=== PATIENT | female | born 1930 | race Two or more races ===

== ENCOUNTER 2017-05-08 10:44 | Emergency (ER) | payer OTHER ==
[~2017-05-08] VITALS: Ht 162.6 cm; Wt 61.2 kg
[2017-05-08 11:57] LABS: CARBON DIOXIDE 28 mmol/L (21-32); CHLORIDE 103 mmol/L (98-107); CREATININE 0.7 mg/dL (0.6-1.3); GLUCOSE 140 mg/dL (74-106); UREA NITROGEN, BLOOD 11 mg/dL (7-18)
[2017-05-08 12:06] LABS: BASOPHILS % (AUTO) 0.6 % (0.0-2.0); EOSINOPHILS # (AUTO) 0.1 K/uL (0.0-0.7); EOSINOPHILS % (AUTO) 1.9 % (0.0-7.0); HEMATOCRIT 36.1 % (31.2-41.9); HEMOGLOBIN 11.8 g/dL (10.9-14.3); LYMPHOCYTES % (AUTO) 28.7 % (20.5-51.5); MEAN CORPUSCULAR HEMOGLOBIN 28.2 uug (24.7-32.8); MEAN CORPUSCULAR HGB CONC 33 g/dL (32.3-35.6); MEAN CORPUSCULAR VOLUME 86.2 fL (75.5-95.3); MONOCYTES # (AUTO) 0.4 K/uL (2.0-10.0); MONOCYTES % (AUTO) 11.8 % (0.0-11.0); PLATELET COUNT (AUTO) 78 K/uL (179-408); RED BLOOD CELL COUNT(AUTO) 4.19 MIL/uL (3.63-4.92); WHITE BLOOD COUNT (AUTO) 3.6 K/uL (3.8-11.8)
[2017-05-08 12:09] LABS: ALANINE AMINOTRANSFERASE 31 U/L (14-59); ALKALINE PHOSPHATASE 168 U/L (50-136); ASPARTATE AMINOTRANSFERASE 48 U/L (15-37); BILIRUBIN,DIRECT 0.4 mg/dL (0.0-0.2); TOTAL PROTEIN, SERUM 7.3 g/dL (6.4-8.2)
[2017-05-08 12:28] LABS: EOSINOPHILS % (MANUAL) 3 % (0-8); LYMPHOCYTES % (MANUAL) 29 % (20-40); MONOCYTES % (MANUAL) 10 % (2-10); NEUTROPHILS % (MANUAL) 57 % (42-75)
--- NOTE | 2017-05-08 12:53 | NUR ---
Patient discharged to home in stable conditon. Written and verbal after care instructions given. Patient verbalizes understanding of instructions.
[2017-05-08 12:57] LABS: REACTIVE LYMPHOCYTES 1 % (0-0)
[2017-05-08 13:13] LABS: *BILIRUBIN,URIN NEGATIVE (NEGATIVE); *BLOOD, URINE NEGATIVE (NEGATIVE); *CLARITY,URINE CLEAR (CLEAR); *COLOR,URINE YELLOW (YELLOW); *KETONES,URINE NEGATIVE (NEGATIVE); *PROTEIN,URINE NEGATIVE (NEGATIVE); *UROBILINOGEN,URINE 0.2 E.U./dl (NORMAL); LEUKOCYTE ESTERASE ,URINE NEGATIVE (NEGATIVE); NITRITE, URINE NEGATIVE (NEGATIVE); PH,URINE 7.5 (5.0-8.0); UGLUCOSE NEGATIVE (NEGATIVE)
[2017-05-08 13:23] LABS: RBC,URINE 0-3 /HPF (0-3); WBC,URINE 0-3 /HPF (0-3)
[2017-05-08 13:24] LABS: BACTERIA,URINE FEW /HPF (NONE SEEN); SQUAMOUS EPITHELIAL CELL,UR FEW /HPF (NONE SEEN)
== END 2017-05-08 12:57 | disposition home or self-care (01) ==
LOC: ER 10:44
DX: J20.8 Acute bronchitis due to other specified organisms (principal); B96.89 Other specified bacterial agents as the cause of diseases classified elsewhere; D69.6 Thrombocytopenia, unspecified; I10 Essential (primary) hypertension; M19.90 Unspecified osteoarthritis, unspecified site; Z95.0 Presence of cardiac pacemaker
CPT/HCPCS: 36415; 71045; 80048; 80076; 81001; 83605; 83880; 84484; 85025; 85730; 87040 ×2; 87086; 93005; 99285; A4663; 70030-TC

== ENCOUNTER 2017-09-10 19:10 | Inpatient (IN) | payer OTHER ==
[~2017-09-10] VITALS: Ht 154.9 cm; Wt 61.0 kg
--- NOTE | 2017-09-10 20:00 | NUR ---
Dr. Hampton at bedside for MSE.
[2017-09-10 20:30] LABS: *BILIRUBIN,URIN NEGATIVE (NEGATIVE); *BLOOD, URINE NEGATIVE (NEGATIVE); *COLOR,URINE YELLOW (YELLOW); *KETONES,URINE NEGATIVE (NEGATIVE); *PROTEIN,URINE NEGATIVE (NEGATIVE); *UROBILINOGEN,URINE 0.2 E.U./dl (NORMAL); LEUKOCYTE ESTERASE ,URINE NEGATIVE (NEGATIVE); NITRITE, URINE NEGATIVE (NEGATIVE); PH,URINE 7.5 (5.0-8.0); UGLUCOSE NEGATIVE (NEGATIVE)
[2017-09-10 20:36] LABS: *CLARITY,URINE SLIGHTLY HAZY (CLEAR)
[2017-09-10 20:37] LABS: BACTERIA,URINE FEW /HPF (NONE SEEN); RBC,URINE 0-3 /HPF (0-3); SQUAMOUS EPITHELIAL CELL,UR MODERATE /HPF (NONE SEEN)
[2017-09-10 20:43] LABS: BASOPHILS % (AUTO) 0.7 % (0.0-2.0); EOSINOPHILS # (AUTO) 0.1 K/uL (0.0-0.7); EOSINOPHILS % (AUTO) 1.6 % (0.0-7.0); HEMATOCRIT 36.4 % (31.2-41.9); LYMPHOCYTES # (AUTO) 1.1 K/uL (20.0-40.0); LYMPHOCYTES % (AUTO) 20.5 % (20.5-51.5); MEAN CORPUSCULAR HEMOGLOBIN 28.1 uug (24.7-32.8); MEAN CORPUSCULAR HGB CONC 33 g/dL (32.3-35.6); MEAN CORPUSCULAR VOLUME 84.9 fL (75.5-95.3); MONOCYTES # (AUTO) 0.5 K/uL (2.0-10.0); MONOCYTES % (AUTO) 9.7 % (0.0-11.0); NEUTROPHILS # (AUTO) 3.7 K/uL (1.8-8.9); NEUTROPHILS % (AUTO) 67.5 % (38.5-71.5); PLATELET COUNT (AUTO) 97 K/uL (179-408); RED BLOOD CELL COUNT(AUTO) 4.28 MIL/uL (3.63-4.92); WHITE BLOOD COUNT (AUTO) 5.5 K/uL (3.8-11.8)
--- NOTE | 2017-09-10 20:46 | NUR ---
PATIENT SHIELDED KAZAKH SPEAKING PATIENT HX CHEST PAIN PORTABLE: 110@3.2 EXAM END: 2039
[2017-09-10 20:47] LABS: CARBON DIOXIDE 26 mmol/L (21-32); CHLORIDE 104 mmol/L (98-107); CREATININE 0.6 mg/dL (0.6-1.3); GLUCOSE 112 mg/dL (74-106); POTASSIUM 4.1 mmol/L (3.5-5.1); UREA NITROGEN, BLOOD 11 mg/dL (7-18)
[2017-09-10 20:54] LABS: ALANINE AMINOTRANSFERASE 41 U/L (14-59); ALKALINE PHOSPHATASE 238 U/L (50-136); ASPARTATE AMINOTRANSFERASE 57 U/L (15-37); BILIRUBIN,TOTAL 0.8 mg/dL (0.2-1.0); CREATINE KINASE, TOTAL 96 U/L (26-192); LIPASE 268 U/L (73-393); TOTAL PROTEIN, SERUM 7.7 g/dL (6.4-8.2)
[2017-09-10 21:13] LABS: BAND % (MANUAL) 3 % (0-10); EOSINOPHILS % (MANUAL) 2 % (0-8); LYMPHOCYTES % (MANUAL) 21 % (20-40); MONOCYTES % (MANUAL) 10 % (2-10); NEUTROPHILS % (MANUAL) 64 % (42-75)
--- NOTE | 2017-09-10 21:29 | NUR ---
Assisted pt to bathroom.
[2017-09-10] MEDS ORDERED: CEFTRIAXONE 1 G in IV DEXTROSE 5% 50 ML IV ONE (21:48)
[2017-09-10] MEDS ORDERED: CEFTRIAXONE 1 G VIAL ONE (21:54)
[2017-09-10] MEDS ORDERED: FLUT10.62 INH (22:09)
[2017-09-10] MEDS ORDERED: SPIR25TA4 PO (22:09)
[2017-09-10] MEDS ORDERED: RANI150T8 PO (22:09)
[2017-09-10] MEDS ORDERED: FURO20TA4 PO (22:09)
[2017-09-10] MEDS ORDERED: OMEP20CA10 PO (22:09)
--- NOTE | 2017-09-10 22:30 | NUR ---
Dr. Hampton on panel call with Dr. Davila.
[2017-09-10] MEDS ORDERED: ALBUTEROL SULFATE 2.5 MG/ 0.5 ML NEBU NEB PRN (22:45)
[2017-09-10] MEDS ORDERED: DEXAMETHASONE SOD PHOSPHATE 4 MG INJ IV ONE (22:45)
[2017-09-10] MEDS ORDERED: IPRATROPIUM BROMIDE 0.5 MG/2.5 ML NEBU NEB PRN (22:45)
--- NOTE | 2017-09-10 22:47 | NUR ---
Passed report to Bairon RUTH tele.
[2017-09-11] VITALS: BP 122/65
--- NOTE | 2017-09-11 00:12 | NUR ---
RECEIVED ADMIN REPORT FROM FLORY HOLDEN IN ER. PT ARRIVED ON TELE FLOOR VIA W/C. PEARL HAND ON, PT STABLE AT THIS TIME. V/S WNL. ORIENTATED TO ROOM AND FLOOR. CALL LIGHT WITHIN REACH.
[2017-09-11] MEDS ORDERED: MORPHINE SULFATE 2 MG/1 ML DISP.SYRIN IV PRN (03:30)
[2017-09-11] MEDS ORDERED: HYDROCODONE/APAP 5-325MG TABLET PO PRN ×2 (03:30→08:45)
[2017-09-11 04:00] VITALS: BP 115/60
--- NOTE | 2017-09-11 06:37 | NUR ---
NO EPISODE OF COUGH NOTED THROUGHOUT SHIFT.
[2017-09-11 06:47] LABS: CARBON DIOXIDE 26 mmol/L (21-32); CHLORIDE 106 mmol/L (98-107); CREATININE 0.6 mg/dL (0.6-1.3); GLUCOSE 174 mg/dL (74-106); POTASSIUM 4.6 mmol/L (3.5-5.1); UREA NITROGEN, BLOOD 13 mg/dL (7-18)
[2017-09-11 06:48] LABS: BASOPHILS % (AUTO) 0.3 % (0.0-2.0); EOSINOPHILS % (AUTO) 0.2 % (0.0-7.0); HEMATOCRIT 35.3 % (31.2-41.9); HEMOGLOBIN 11.7 g/dL (10.9-14.3); LYMPHOCYTES # (AUTO) 0.7 K/uL (20.0-40.0); LYMPHOCYTES % (AUTO) 21.2 % (20.5-51.5); MEAN CORPUSCULAR HGB CONC 33 g/dL (32.3-35.6); MEAN CORPUSCULAR VOLUME 84.4 fL (75.5-95.3); MONOCYTES # (AUTO) 0.1 K/uL (2.0-10.0); MONOCYTES % (AUTO) 1.8 % (0.0-11.0); NEUTROPHILS # (AUTO) 2.6 K/uL (1.8-8.9); NEUTROPHILS % (AUTO) 76.5 % (38.5-71.5); PLATELET COUNT (AUTO) 82 K/uL (179-408); RED BLOOD CELL COUNT(AUTO) 4.18 MIL/uL (3.63-4.92); WHITE BLOOD COUNT (AUTO) 3.4 K/uL (3.8-11.8)
[2017-09-11] MEDS ORDERED: MORPHINE SULFATE 4 MG/1 ML DISP.SYRIN IV PRN (07:45)
[2017-09-11] MEDS ORDERED: AZITHROMYCIN 250 MG TABLET PO ONE (08:45)
[2017-09-11] MEDS ORDERED: ALBUTEROL SULFATE 2.5 MG/ 0.5 ML NEBU NEB PRN (08:45)
[2017-09-11] MEDS ORDERED: ONDANSETRON 4 MG/2 ML VIAL IV PRN (08:45)
[2017-09-11] MEDS ORDERED: DEXAMETHASONE SOD PHOSPHATE 10 MG INJ IV ONE (08:45)
[2017-09-11] MEDS ORDERED: Z GUARD REMEDY PASTE 57 GM TUBE TOP PRN (08:45)
[2017-09-11] MEDS ORDERED: MAGNESIUM HYDROXIDE 30 ML LIQUID UDC PO PRN (08:45)
[2017-09-11] MEDS ORDERED: ACETAMINOPHEN 325 MG TABLET PO PRN (08:45)
[2017-09-11] MEDS ORDERED: IPRATROPIUM BROMIDE 0.5 MG/2.5 ML NEBU NEB PRN (08:45)
[2017-09-11] MEDS: FLUTICASONE/VILANTEROL 1 EACH BLST.W.DEV INH SCH (10:00)
[2017-09-11] MEDS: FUROSEMIDE 20 MG TABLET PO SCH (10:00)
[2017-09-11] MEDS: SPIRONOLACTONE 25 MG TABLET PO SCH (10:00)
[2017-09-11 11:48] VITALS: BP 108/75
[2017-09-11 15:36] VITALS: BP 131/63
[2017-09-11] MEDS: ENSURE ENLIVE (VAN) 240 ML LIQUID PO SCH (17:57)
[2017-09-11] MEDS ORDERED: NOVASOURCE RENAL 237 ML LIQUID PO SCH (18:00)
[2017-09-11 20:00] VITALS: BP 109/58
--- NOTE | 2017-09-11 20:30 | NUR ---
PT'S A/A/O X3 W/ 6 FAMILY MEMBERS AT THE BEDSIDE.PER PT AND FAMILY MEMBER STATED THAT PT JUST CAME BACK FROM CT OF CHEST FOR A WHILE,DENIED OF PAIN OR ANY DISCOMFORT.GAVE IVF:NSS @ 75 ML/HR;EDUCATED TO PT AND FAMILY MEMBERS;THEY VERBALIZED UNDERSTANDING AND COOPERATIVE NOTED.TELEMETRY'S PACING UNDERLINE SR,V- PACING NOTED.PER PT'S DAUGHTER WHO STATED THAT SHE'LL STAY OVERNIGHT W/PT DUE TO LANGUAGE BARRIER,PROVIDED COMFORT.CALL-LIGHT WITHIN REACH.NO COUGHING'S SEEN AT THIS TIME NOTED.
[2017-09-11] MEDS: CEFTRIAXONE 1 G in IV DEXTROSE 5% 50 ML IV SCH (21:15)
[2017-09-12] VITALS: BP 99/53
--- NOTE | 2017-09-12 00:10 | NUR ---
ASSISTED PT TO BATHROOM FOR URINATION;PT DENIED OF PAIN OR ANY DISCOMFORT AT THIS TIME;EDUCATED TO PT'S DAUGHTER(GARRETT) WHO STAYED AT THE BEDSIDE TO KEEP PT NPO AFTER THIS TIME DUE TO THE TEST IN AM(CT LIVER BIOPSY),PT VERBALIZED UNDERSTANDING TO KEEP NPO NOTED.MAINTAINED IVF ORDER.KEPT COMFORT.CALL-LIGHT WITHIN REACH.TELEMETRY'S V PACING NOTED.
[2017-09-12 04:00] VITALS: BP 107/52
[2017-09-12] MEDS: IV NS 1000 ML 1,000 ML IV PRN (05:55)
--- NOTE | 2017-09-12 06:05 | NUR ---
PT'S SLEEPING ON BED AT THIS TIME,UNLABORED BREATHING NOTED.KEPT NPO AFTER MIDNIGHT FOR A PROCEDURE IN AM.PT'S DAUGHTER AT THE BEDSIDE @ ALL TIMES.NO DISTRESS NOTED IN THE SHIFT.MAINTAINED IVF ORDER.KEPT CALL-LIGHT WITHIN REACH.NO BLEEDING OR HEMOPTYSIS'S SEEN IN THE SHIFT NOTED.
[2017-09-12 06:12] LABS: BASOPHILS % (AUTO) 0.1 % (0.0-2.0); HEMATOCRIT 31.6 % (31.2-41.9); HEMOGLOBIN 10.6 g/dL (10.9-14.3); LYMPHOCYTES # (AUTO) 0.9 K/uL (20.0-40.0); LYMPHOCYTES % (AUTO) 11.3 % (20.5-51.5); MEAN CORPUSCULAR HEMOGLOBIN 28.7 uug (24.7-32.8); MEAN CORPUSCULAR HGB CONC 34 g/dL (32.3-35.6); MEAN CORPUSCULAR VOLUME 85.2 fL (75.5-95.3); MONOCYTES # (AUTO) 0.6 K/uL (2.0-10.0); MONOCYTES % (AUTO) 7.5 % (0.0-11.0); NEUTROPHILS # (AUTO) 6.2 K/uL (1.8-8.9); NEUTROPHILS % (AUTO) 81.1 % (38.5-71.5); PLATELET COUNT (AUTO) 78 K/uL (179-408); RED BLOOD CELL COUNT(AUTO) 3.71 MIL/uL (3.63-4.92); WHITE BLOOD COUNT (AUTO) 7.6 K/uL (3.8-11.8)
[2017-09-12 06:30] LABS: ALANINE AMINOTRANSFERASE 37 U/L (14-59); ALKALINE PHOSPHATASE 160 U/L (50-136); ASPARTATE AMINOTRANSFERASE 34 U/L (15-37); BILIRUBIN,TOTAL 0.5 mg/dL (0.2-1.0); CARBON DIOXIDE 26 mmol/L (21-32); CHLORIDE 107 mmol/L (98-107); CHOLESTEROL 151 mg/dL (<200); CREATININE 0.6 mg/dL (0.6-1.3); GLUCOSE 155 mg/dL (74-106); HDL CHOLESTEROL 58 mg/dL (40-60); MAGNESIUM 2.3 mg/dL (1.8-2.4); PHOSPHOROUS 2.6 mg/dL (2.5-4.9); POTASSIUM 4.4 mmol/L (3.5-5.1); TOTAL PROTEIN, SERUM 6.6 g/dL (6.4-8.2); TRIGLYCERIDES 30 MG/DL (30-150); UREA NITROGEN, BLOOD 20 mg/dL (7-18)
[2017-09-12 06:37] LABS: THYROID STIMULATING HORMONE 0.318 mIU/mL (0.358-3.740)
--- NOTE | 2017-09-12 07:38 | NUR ---
patient awake/alert at this time, no s/s of distress. stable condition. ivf running. Patient NPO for CT liver biopsy (consent still needs to be signed). MD will be notified to explain the reason for CT liver biopsy because patient's family members are asking about the reasons for CT. ambulatory. uruguayan speaking only. no hemoptysis noted at this time. will continue to monitor throughout shift. safety measures implemented. call light within reach.
[2017-09-12] MEDS: ENSURE ENLIVE (VAN) 240 ML LIQUID PO SCH ×3 (08:00→18:15)
[2017-09-12] MEDS: FLUTICASONE/VILANTEROL 1 EACH BLST.W.DEV INH SCH (08:30)
[2017-09-12] MEDS: AZITHROMYCIN 250 MG TABLET PO SCH (08:30)
[2017-09-12] MEDS: FUROSEMIDE 20 MG TABLET PO SCH (08:32)
[2017-09-12] MEDS: SPIRONOLACTONE 25 MG TABLET PO SCH (08:32)
[2017-09-12 08:44] VITALS: BP 110/71
--- NOTE | 2017-09-12 10:42 | NUR ---
MD ORDERED 4 PHASE LIVER MASS COMPUTED TOMOGRAPHY. MD ALSO CALLED PATIENT'S DAUGHTER TO EXPLAIN THE REASON FOR PROCEDURE AND DAUGHTER EXPLAINED REASON FOR PROCEDURE TO PATIENT. PATIENT VERBALIZED UNDERSTANDING AND SIGNED CONSENT FORM FOR IV CONTRAST ADMINISTRATION AND ALSO SIGNED CONSENT FORM FOR 4 PHASE LIVER MASS COMPUTER TOMOGRAPHY.
[2017-09-12] MEDS ORDERED: IOHEXOL 350 100 ML INFUS..BTL ONE (10:46)
[2017-09-12] MEDS ORDERED: IV NORMAL SALINE 100 ML ONE (10:46)
[2017-09-12] MEDS ORDERED: SWABABLE VALVE TRANSFER SET EA MC ONE (10:46)
--- NOTE | 2017-09-12 11:00 | NUR ---
patient brought down for Four Phase Liver Mass CT at this time.
[2017-09-12 11:42] VITALS: BP 117/57
--- NOTE | 2017-09-12 11:45 | NUR ---
Patient brought back from CT in stable condition. results are pending.
[2017-09-12] MEDS ORDERED: PROP10TA10 PO (12:13)
--- NOTE | 2017-09-12 15:31 | NUR ---
patient in stable condition throughout shift thus far. no s/s of distress. ivf running. granddaughter at bedside. tolerating diet.
[2017-09-12 16:09] VITALS: BP 108/51
--- NOTE | 2017-09-12 18:29 | NUR ---
no signs of hemoptysis throughout shift. Has not heard patient cough throughout shift and patient does not complain of coughing. stable throughout shift. telemetry discontinued. ivf running. vital signs stable. requires assistance to restroom due to weak gait. bed in locked/low position, side rails up x2, bed alarm on, call light within reach. awaiting results for Four Phase Liver Mass CT. No pain verbalized by patient. Comfort/safety provided.
[2017-09-12 20:00] VITALS: BP 111/53
[2017-09-12] MEDS: CEFTRIAXONE 1 G in IV DEXTROSE 5% 50 ML IV SCH (22:26)
[2017-09-13] MEDS: IV NS 1000 ML 1,000 ML IV PRN ×2 (03:48→15:09)
[2017-09-13 03:53] VITALS: BP 99/45
--- NOTE | 2017-09-13 07:42 | NUR ---
AWAKE ALERT AND ORIENTED X3, NO ACUTE PAIN, NO SOB, NO ACTIVE HEMOPTYSIS
[2017-09-13] MEDS: SPIRONOLACTONE 25 MG TABLET PO SCH (08:11)
[2017-09-13] MEDS: FUROSEMIDE 20 MG TABLET PO SCH (08:11)
[2017-09-13] MEDS: AZITHROMYCIN 250 MG TABLET PO SCH (08:11)
[2017-09-13] MEDS: FLUTICASONE/VILANTEROL 1 EACH BLST.W.DEV INH SCH (08:12)
[2017-09-13] MEDS: ENSURE ENLIVE (VAN) 240 ML LIQUID PO SCH ×3 (08:14→18:35)
[2017-09-13] MEDS ORDERED: DEXTROSE 50% 50 ML DISP.SYRIN IV PRN (11:00)
[2017-09-13 11:42] VITALS: BP 106/56
[2017-09-13 11:44] LABS: BASOPHILS % (AUTO) 0.3 % (0.0-2.0); EOSINOPHILS % (AUTO) 1.1 % (0.0-7.0); HEMATOCRIT 33.5 % (31.2-41.9); HEMOGLOBIN 11.1 g/dL (10.9-14.3); LYMPHOCYTES % (AUTO) 20.9 % (20.5-51.5); MEAN CORPUSCULAR HEMOGLOBIN 28.2 uug (24.7-32.8); MEAN CORPUSCULAR HGB CONC 33 g/dL (32.3-35.6); MEAN CORPUSCULAR VOLUME 85.5 fL (75.5-95.3); MONOCYTES # (AUTO) 0.5 K/uL (2.0-10.0); MONOCYTES % (AUTO) 10.3 % (0.0-11.0); NEUTROPHILS # (AUTO) 3.1 K/uL (1.8-8.9); NEUTROPHILS % (AUTO) 67.4 % (38.5-71.5); PLATELET COUNT (AUTO) 79 K/uL (179-408); RED BLOOD CELL COUNT(AUTO) 3.92 MIL/uL (3.63-4.92)
[2017-09-13 11:48] LABS: ALANINE AMINOTRANSFERASE 41 U/L (14-59); ALKALINE PHOSPHATASE 170 U/L (50-136); ASPARTATE AMINOTRANSFERASE 52 U/L (15-37); BILIRUBIN,TOTAL 0.6 mg/dL (0.2-1.0); CARBON DIOXIDE 27 mmol/L (21-32); CHLORIDE 106 mmol/L (98-107); CREATININE 0.7 mg/dL (0.6-1.3); GLUCOSE 215 mg/dL (74-106); PHOSPHOROUS 2.4 mg/dL (2.5-4.9); POTASSIUM 3.5 mmol/L (3.5-5.1); TOTAL PROTEIN, SERUM 6.4 g/dL (6.4-8.2); UREA NITROGEN, BLOOD 17 mg/dL (7-18)
[2017-09-13 11:55] LABS: WHITE BLOOD COUNT (AUTO) 4.7 K/uL (3.8-11.8)
[2017-09-13 11:58] LABS: THYROID STIMULATING HORMONE 2.523 mIU/mL (0.358-3.740)
--- NOTE | 2017-09-13 12:00 | NUR ---
CONTINUE WITH MEDICAL OBSERVATION. A UP AND ABOUT IN ROOM WITH FAMILY AT BEDSIDE
[2017-09-13] MEDS: BLOOD SUGAR DIAGNOSTIC 1 EACH STRIP VI SCH ×3 (12:07→21:11)
[2017-09-13 12:08] LABS: AFP, TUMOR MARKER 9.1 ng/mL (0.0-8.3); CANCER ANTIGEN 15-3 25.3 U/mL (0.0-25.0)
[2017-09-13] MEDS: INSULIN REGULAR, HUMAN 300 UNIT/3 ML VIAL SQ PRN (12:09)
[2017-09-13 12:25] LABS: LYMPHOCYTES % (MANUAL) 17 % (20-40); NEUTROPHILS % (MANUAL) 70 % (42-75)
[2017-09-13 12:26] LABS: MONOCYTES % (MANUAL) 13 % (2-10)
[2017-09-13] MEDS: CEPHALEXIN MONOHYDRATE 500 MG CAPSULE PO SCH ×2 (15:07→21:12)
[2017-09-13] MEDS ORDERED: NEUTRA PHOS PACKET PO ONE (15:45)
[2017-09-13 16:05] VITALS: BP 111/58
[2017-09-13] MEDS: DOCUSATE SODIUM 100 MG CAPSULE PO SCH ×2 (17:39→21:12)
[2017-09-13] MEDS: PANTOPRAZOLE SODIUM 40 MG TABLET.DR PO SCH (17:39)
--- NOTE | 2017-09-13 17:57 | NUR ---
SEEN BUY HOSPITALIST SEE NOTES. AWAITING RESULTS OF CT ABDOMEN/PELVIS. NO ACTIVE HEMOPTYSIS NOTED. ON AND OFF DRY COUGH
--- NOTE | 2017-09-13 19:20 | NUR ---
Received pt awake, alert, orientedx4. Pt shows no signs of distress. Pt iv intact and patent. Family at bedside. Pt no complaint of pain. Call light within reach, bed alarm on, low position and side rails upx2. Will continue to monitor.
[2017-09-13 20:00] VITALS: BP 112/59
[2017-09-14 04:00] VITALS: BP 109/52
[2017-09-14] MEDS: IV NS 1000 ML 1,000 ML IV PRN (04:23)
[2017-09-14] MEDS: CEPHALEXIN MONOHYDRATE 500 MG CAPSULE PO SCH ×3 (06:05→21:03)
[2017-09-14] MEDS: PANTOPRAZOLE SODIUM 40 MG TABLET.DR PO SCH (06:05)
[2017-09-14 06:31] LABS: BASOPHILS % (AUTO) 0.3 % (0.0-2.0); EOSINOPHILS # (AUTO) 0.1 K/uL (0.0-0.7); EOSINOPHILS % (AUTO) 1.8 % (0.0-7.0); HEMATOCRIT 33.8 % (31.2-41.9); HEMOGLOBIN 11.4 g/dL (10.9-14.3); LYMPHOCYTES # (AUTO) 1.1 K/uL (20.0-40.0); LYMPHOCYTES % (AUTO) 25.2 % (20.5-51.5); MEAN CORPUSCULAR HEMOGLOBIN 28.6 uug (24.7-32.8); MEAN CORPUSCULAR HGB CONC 34 g/dL (32.3-35.6); MEAN CORPUSCULAR VOLUME 85.2 fL (75.5-95.3); MONOCYTES # (AUTO) 0.6 K/uL (2.0-10.0); MONOCYTES % (AUTO) 13.4 % (0.0-11.0); NEUTROPHILS # (AUTO) 2.5 K/uL (1.8-8.9); NEUTROPHILS % (AUTO) 59.3 % (38.5-71.5); PLATELET COUNT (AUTO) 79 K/uL (179-408); RED BLOOD CELL COUNT(AUTO) 3.97 MIL/uL (3.63-4.92); WHITE BLOOD COUNT (AUTO) 4.3 K/uL (3.8-11.8)
[2017-09-14] MEDS: BLOOD SUGAR DIAGNOSTIC 1 EACH STRIP VI SCH ×4 (06:34→21:03)
[2017-09-14 06:39] LABS: ALANINE AMINOTRANSFERASE 44 U/L (14-59); ALKALINE PHOSPHATASE 170 U/L (50-136); ASPARTATE AMINOTRANSFERASE 57 U/L (15-37); BILIRUBIN,TOTAL 0.8 mg/dL (0.2-1.0); CARBON DIOXIDE 25 mmol/L (21-32); CHLORIDE 107 mmol/L (98-107); CREATININE 0.5 mg/dL (0.6-1.3); GLUCOSE 102 mg/dL (74-106); MAGNESIUM 2.1 mg/dL (1.8-2.4); PHOSPHOROUS 3.2 mg/dL (2.5-4.9); POTASSIUM 3.9 mmol/L (3.5-5.1); TOTAL PROTEIN, SERUM 6.1 g/dL (6.4-8.2); UREA NITROGEN, BLOOD 13 mg/dL (7-18)
--- NOTE | 2017-09-14 06:42 | NUR ---
PT SLEPT THROUGHOUT THE SHIFT. PT SHOWS NO SIGNS OF DISTRESS.PRESCRIBED MEDICATION GIVEN AND PT TOLERATED IT WELL. DAUGHTER AT BEDSIDE. CALL LIGHT WITHIN REACH, BED ALARM ON AND IN LOW POSITION.PT HAD 2 BOWEL MOVEMENT . PT DIDN'T HAVE ANY VOMITING. PT STABLE. SAFETY AND COMFORT PROVIDED. ALL NEEDS ARE MET. WILL ENDORSE TO DAYSHIFT NURSE.
--- NOTE | 2017-09-14 07:30 | NUR ---
still asleep. no distress noted, daughter at bedside, explained plan of care, verbalized understanding, call light within reach
[2017-09-14] MEDS: DOCUSATE SODIUM 100 MG CAPSULE PO SCH ×2 (08:33→20:58)
[2017-09-14] MEDS: FUROSEMIDE 20 MG TABLET PO SCH (08:34)
[2017-09-14] MEDS: SPIRONOLACTONE 25 MG TABLET PO SCH (08:34)
[2017-09-14] MEDS: AZITHROMYCIN 250 MG TABLET PO SCH (08:34)
[2017-09-14] MEDS: FLUTICASONE/VILANTEROL 1 EACH BLST.W.DEV INH SCH (08:37)
--- NOTE | 2017-09-14 09:10 | NUR ---
endorsed care to Afia RUTH
[2017-09-14] MEDS: GLUCERNA SHAKE 237 ML CAN PO SCH ×3 (09:52→17:00)
[2017-09-14 12:04] VITALS: BP 115/60
[2017-09-14 15:50] VITALS: BP 122/72
[2017-09-14 16:16] LABS: PRE ALBUMIN 12.8 MG/DL (18.0-35.7)
[2017-09-14] MEDS: INSULIN REGULAR, HUMAN 300 UNIT/3 ML VIAL SQ PRN ×3 (17:52→21:10)
--- NOTE | 2017-09-14 19:20 | NUR ---
RECEIVED PT AWAKE, ALERT, ORIENTEDX4. PT SHOWS NO SIGNS OF DISTRESS. PT IV INTACT AND PATENT.FAMILY AT BEDSIDE. CALL LIGHT WITHIN REACH, BED ALARM ON AND IN LOW POSITION , SIDE RAILS UPX2. WILL CONTINUE TO MONITOR.
[2017-09-14 22:13] VITALS: BP 115/60
[2017-09-15] MEDS: IV NS 1000 ML 1,000 ML IV PRN ×2 (01:48→16:17)
[2017-09-15] MEDS: PANTOPRAZOLE SODIUM 40 MG TABLET.DR PO SCH (06:11)
[2017-09-15] MEDS: CEPHALEXIN MONOHYDRATE 500 MG CAPSULE PO SCH ×3 (06:11→21:05)
[2017-09-15 06:13] LABS: BASOPHILS % (AUTO) 0.6 % (0.0-2.0); EOSINOPHILS # (AUTO) 0.1 K/uL (0.0-0.7); EOSINOPHILS % (AUTO) 2.4 % (0.0-7.0); HEMATOCRIT 32.4 % (31.2-41.9); HEMOGLOBIN 10.8 g/dL (10.9-14.3); LYMPHOCYTES # (AUTO) 1.1 K/uL (20.0-40.0); MEAN CORPUSCULAR HEMOGLOBIN 28.5 uug (24.7-32.8); MEAN CORPUSCULAR HGB CONC 33 g/dL (32.3-35.6); MEAN CORPUSCULAR VOLUME 85.5 fL (75.5-95.3); MONOCYTES # (AUTO) 0.5 K/uL (2.0-10.0); MONOCYTES % (AUTO) 12.3 % (0.0-11.0); NEUTROPHILS # (AUTO) 2.3 K/uL (1.8-8.9); NEUTROPHILS % (AUTO) 57.7 % (38.5-71.5); PLATELET COUNT (AUTO) 72 K/uL (179-408); RED BLOOD CELL COUNT(AUTO) 3.79 MIL/uL (3.63-4.92); WHITE BLOOD COUNT (AUTO) 3.9 K/uL (3.8-11.8)
[2017-09-15 06:16] VITALS: BP 105/48
[2017-09-15 06:38] LABS: ALANINE AMINOTRANSFERASE 46 U/L (14-59); ALKALINE PHOSPHATASE 162 U/L (50-136); ASPARTATE AMINOTRANSFERASE 47 U/L (15-37); CARBON DIOXIDE 25 mmol/L (21-32); CHLORIDE 109 mmol/L (98-107); CREATININE 0.6 mg/dL (0.6-1.3); GLUCOSE 91 mg/dL (74-106); MAGNESIUM 2.1 mg/dL (1.8-2.4); PHOSPHOROUS 3.2 mg/dL (2.5-4.9); TOTAL PROTEIN, SERUM 6.1 g/dL (6.4-8.2); UREA NITROGEN, BLOOD 11 mg/dL (7-18)
[2017-09-15] MEDS: BLOOD SUGAR DIAGNOSTIC 1 EACH STRIP VI SCH ×4 (06:43→21:08)
--- NOTE | 2017-09-15 06:48 | NUR ---
PT SLEPT THROUGHOUT THE SHIFT . PT SHOWS NO SIGNS OF DISTRESS. PT IV INTACT. PRESCRIBED MEDICATION GIVEN AND PT TOLERATED IT WELL. SAFETY AND COMFORT PROVIDED. WILL ENDORSE TO DAYSHIFT NURSE.
[2017-09-15] MEDS: DOCUSATE SODIUM 100 MG CAPSULE PO SCH ×2 (08:37→21:05)
[2017-09-15] MEDS: AZITHROMYCIN 250 MG TABLET PO SCH (08:37)
[2017-09-15] MEDS: FLUTICASONE/VILANTEROL 1 EACH BLST.W.DEV INH SCH (08:38)
[2017-09-15] MEDS: GLUCERNA SHAKE 237 ML CAN PO SCH ×3 (08:38→16:57)
[2017-09-15 09:45] LABS: BAND % (MANUAL) 0 % (0-10); EOSINOPHILS % (MANUAL) 2 % (0-8); LYMPHOCYTES % (MANUAL) 27 % (20-40); MONOCYTES % (MANUAL) 13 % (2-10); NEUTROPHILS % (MANUAL) 58 % (42-75)
[2017-09-15 11:19] VITALS: BP 112/59
[2017-09-15] MEDS: INSULIN REGULAR, HUMAN 300 UNIT/3 ML VIAL SQ PRN ×2 (12:28→21:10)
[2017-09-15] MEDS ORDERED: LIDOCAINE HCL 1% 20 ML VIAL ONE (13:42)
[2017-09-15] MEDS ORDERED: FENTANYL CITRATE 100 MCG/2 ML AMPUL IV PRN (14:00)
[2017-09-15] MEDS ORDERED: NALOXONE HCL 0.4 MG/ML AMPUL IV PRN (14:00)
[2017-09-15] MEDS ORDERED: MIDAZOLAM HCL 2 MG/2 ML VIAL IV PRN (14:00)
--- NOTE | 2017-09-15 14:40 | NUR ---
PATIENT OFF FLOOR FOR LIVER BIOPSY
[2017-09-15 16:15] VITALS: BP 156/77
[2017-09-15] MEDS: ALBUTEROL SULFATE 2.5 MG/3 ML NEBU NEB SCH (19:56)
[2017-09-15] MEDS: IPRATROPIUM BROMIDE 0.5 MG/2.5 ML NEBU NEB SCH (19:56)
--- NOTE | 2017-09-15 20:00 | NUR ---
PATIENT IS AWAKE IN BED MAINLY UKRAINIAN SPEAKING, AAOX4 DENIES PAIN OR ANY DISTRESS ON ASSESSMENT. NO S/S OF HEMOPTYSIS AT PRESENT. NO RESPIRATORY DISTRESS. SAFETY MEASURES IN PLACE. CALL LIGHT LEFT WITHIN PATIENT'S REACH
[2017-09-15 20:04] VITALS: BP 140/75
[2017-09-16] MEDS: ALBUTEROL SULFATE 2.5 MG/3 ML NEBU NEB SCH ×4 (00:36→19:03)
[2017-09-16] MEDS: IPRATROPIUM BROMIDE 0.5 MG/2.5 ML NEBU NEB SCH ×4 (00:36→19:03)
[2017-09-16 04:00] VITALS: BP 108/60
[2017-09-16 04:06] LABS: *IMMUNOGLOBULIN G, SERUM 1031 mg/dL (700-1600); IMMUNOGLOBULIN A, SERUM 343 mg/dL (64-422); IMMUNOGLOBULIN M, SERUM 180 mg/dL (26-217)
[2017-09-16 05:09] LABS: HEPATITIS B SURFACE AB Non Reactive (.); HEPATITIS B SURFACE AG Negative (Negative)
--- NOTE | 2017-09-16 06:16 | NUR ---
PATIENT SLEPT WELL ON THIS SHIFT, NO C/O PAIN OR CUTE DISTRESS ON THIS SHIFT. NO HEMOPTYSIS, NO C/O OF CHEST PAIN OR SOB ON THIS SHIFT. VSS WNL, NO FURTHER CHANGES IN STATUS AT THIS TIME.
[2017-09-16] MEDS: CEPHALEXIN MONOHYDRATE 500 MG CAPSULE PO SCH ×2 (06:26→14:07)
[2017-09-16] MEDS: PANTOPRAZOLE SODIUM 40 MG TABLET.DR PO SCH (06:26)
[2017-09-16] MEDS: BLOOD SUGAR DIAGNOSTIC 1 EACH STRIP VI SCH ×3 (06:28→16:42)
[2017-09-16 06:35] LABS: BASOPHILS % (AUTO) 0.4 % (0.0-2.0); EOSINOPHILS # (AUTO) 0.1 K/uL (0.0-0.7); EOSINOPHILS % (AUTO) 1.4 % (0.0-7.0); HEMATOCRIT 33.8 % (31.2-41.9); HEMOGLOBIN 11.1 g/dL (10.9-14.3); LYMPHOCYTES # (AUTO) 1.2 K/uL (20.0-40.0); LYMPHOCYTES % (AUTO) 17.5 % (20.5-51.5); MEAN CORPUSCULAR HEMOGLOBIN 27.8 uug (24.7-32.8); MEAN CORPUSCULAR HGB CONC 33 g/dL (32.3-35.6); MEAN CORPUSCULAR VOLUME 84.7 fL (75.5-95.3); MONOCYTES # (AUTO) 0.9 K/uL (2.0-10.0); MONOCYTES % (AUTO) 13.9 % (0.0-11.0); NEUTROPHILS # (AUTO) 4.4 K/uL (1.8-8.9); NEUTROPHILS % (AUTO) 66.8 % (38.5-71.5); PLATELET COUNT (AUTO) 91 K/uL (179-408); WHITE BLOOD COUNT (AUTO) 6.6 K/uL (3.8-11.8)
--- NOTE | 2017-09-16 07:10 | NUR ---
Received pt sleeping in bed with no immediate s/s of SOB, pain, distress or discomfort. Pt is easily arousable to name, noted pt is Mohawk speaking Noted daughter in near by chair.
[2017-09-16 07:13] LABS: ALANINE AMINOTRANSFERASE 38 U/L (14-59); ALKALINE PHOSPHATASE 179 U/L (50-136); ASPARTATE AMINOTRANSFERASE 57 U/L (15-37); BILIRUBIN,TOTAL 1.3 mg/dL (0.2-1.0); CARBON DIOXIDE 24 mmol/L (21-32); CHLORIDE 105 mmol/L (98-107); CREATININE 0.6 mg/dL (0.6-1.3); GLUCOSE 113 mg/dL (74-106); MAGNESIUM 2.1 mg/dL (1.8-2.4); PHOSPHOROUS 2.8 mg/dL (2.5-4.9); POTASSIUM 3.8 mmol/L (3.5-5.1); TOTAL PROTEIN, SERUM 6.6 g/dL (6.4-8.2); UREA NITROGEN, BLOOD 11 mg/dL (7-18)
[2017-09-16 08:07] LABS: A/G RATIO 0.9 (0.7-1.7); ALBUMIN 2.6 g/dL (2.9-4.4); ALPHA-1-GLOBULIN 0.2 g/dL (0.0-0.4); ALPHA-2-GLOBULIN 0.6 g/dL (0.4-1.0); BETA GLOBULIN 0.8 g/dL (0.7-1.3); GAMMA GLOBULIN 1.3 g/dL (0.4-1.8); GLOBULIN, TOTAL 2.9 g/dL (2.2-3.9); M-SPIKE Not Observed g/dL (Not Observed)
--- NOTE | 2017-09-16 08:20 | NUR ---
Pt compliant with morning medications, noted pt able to sit in a chair and eat breakfast on her own, able to verbalize needs
[2017-09-16] MEDS: GLUCERNA SHAKE 237 ML CAN PO SCH ×3 (08:24→17:28)
[2017-09-16] MEDS: DOCUSATE SODIUM 100 MG CAPSULE PO SCH (08:25)
[2017-09-16] MEDS: AZITHROMYCIN 250 MG TABLET PO SCH (08:25)
[2017-09-16] MEDS: FLUTICASONE/VILANTEROL 1 EACH BLST.W.DEV INH SCH (08:25)
[2017-09-16 09:49] LABS: EOSINOPHILS % (MANUAL) 2 % (0-8); LYMPHOCYTES % (MANUAL) 19 % (20-40); MONOCYTES % (MANUAL) 13 % (2-10); NEUTROPHILS % (MANUAL) 66 % (42-75)
[2017-09-16 11:41] VITALS: BP 111/58
[2017-09-16] MEDS: INSULIN REGULAR, HUMAN 300 UNIT/3 ML VIAL SQ PRN (12:41)
[2017-09-16 15:36] VITALS: BP 117/67
[2017-09-17 15:07] LABS: ANGIOTENSION CONVERTING ENZYME 69 U/L (14-82)
[2017-09-19 18:06] LABS: *QFT MITOGEN VALUE 7.34 IU/mL (.); *QFT TB AG MINUS NIL VALUE 0.03 IU/mL (.); *QFT TB AG VALUE 0.15 IU/mL (.); *QFT TB GOLD Negative (Negative)
== END 2017-09-16 19:30 | disposition home health service (06) | DRG 281 ==
LOC: ER 19:12 → TELE 23:07 → MED 09-12 16:40
PROVIDERS: ADMIT Nurse Practitioner Acute Care; ATTEND Nurse Practitioner Acute Care
PROC: 0FB13ZX Excision of Right Lobe Liver, Percutaneous Approach, Diagnostic (ICD-10-PCS; principal; 2017-09-15)
DX: C22.0 Liver cell carcinoma (principal); C78.01 Secondary malignant neoplasm of right lung; C78.02 Secondary malignant neoplasm of left lung; E44.0 Moderate protein-calorie malnutrition; D68.9 Coagulation defect, unspecified; E11.65 Type 2 diabetes mellitus with hyperglycemia; E67.8 Other specified hyperalimentation; J47.0 Bronchiectasis with acute lower respiratory infection; D69.6 Thrombocytopenia, unspecified; K74.69 Other cirrhosis of liver; R04.2 Hemoptysis; I08.3 Combined rheumatic disorders of mitral, aortic and tricuspid valves; Z95.0 Presence of cardiac pacemaker; G47.33 Obstructive sleep apnea (adult) (pediatric); K80.20 Calculus of gallbladder without cholecystitis without obstruction; Z87.11 Personal history of peptic ulcer disease; M19.90 Unspecified osteoarthritis, unspecified site; K29.70 Gastritis, unspecified, without bleeding; I10 Essential (primary) hypertension; E83.39 Other disorders of phosphorus metabolism; E83.51 Hypocalcemia; I70.0 Atherosclerosis of aorta; Z79.51 Long term (current) use of inhaled steroids; N28.1 Cyst of kidney, acquired; Z68.25 Body mass index [BMI] 25.0-25.9, adult; R16.2 Hepatomegaly with splenomegaly, not elsewhere classified; R59.1 Generalized enlarged lymph nodes; J20.9 Acute bronchitis, unspecified; J84.10 Pulmonary fibrosis, unspecified; K59.00 Constipation, unspecified
CPT/HCPCS: 36415; 70030-TC; 71045; 71250; 74150; 74170; 76942; 82105; 82378; 82746; 82784; 83690; 83735; 84100; 84155; 84165; 84443; 84481; 85025; 85610; 85651; 86300; 86301; 86334; 86480; 86706; 86803; 87070; 87340; 88342; 93005; 93307; 94640; 94664; 97110; 97116; 97530; A4663; J0696; J1100; J1815; J3490; J3590; J7030; J7060; Q0144; Q9967

== ENCOUNTER 2017-12-21 12:29 | Inpatient (IN) | payer OTHER, MEDICARE ==
[~2017-12-21] VITALS: Ht 154.9 cm; Wt 56.4 kg
[~2017-12-21 12:29] MED LIST: FLUT10.62 INH; OMEP20CA10 PO
[2017-12-21] MEDS ORDERED: IV NORMAL SALINE 500 ML BAG IV ONE (12:45)
[2017-12-21] MEDS ORDERED: FURO20TA4 PO (12:52)
[2017-12-21] MEDS ORDERED: RANI150T8 PO (12:52)
[2017-12-21] MEDS ORDERED: SORA200T2 PO (12:52)
[2017-12-21] MEDS ORDERED: SPIR25TA6 PO (12:52)
[2017-12-21] MEDS ORDERED: ONDA8TAB12 PO (12:52)
[2017-12-21] MEDS ORDERED: PROP10TA10 PO (12:52)
[2017-12-21 13:06] LABS: BASOPHILS % (AUTO) 0.5 % (0.0-2.0); EOSINOPHILS # (AUTO) 0.2 K/uL (0.0-0.7); EOSINOPHILS % (AUTO) 1.8 % (0.0-7.0); HEMOGLOBIN 12.6 g/dL (10.9-14.3); LYMPHOCYTES # (AUTO) 0.8 K/uL (20.0-40.0); LYMPHOCYTES % (AUTO) 9.4 % (20.5-51.5); MEAN CORPUSCULAR HGB CONC 33 g/dL (32.3-35.6); MEAN CORPUSCULAR VOLUME 84.4 fL (75.5-95.3); MONOCYTES # (AUTO) 0.8 K/uL (2.0-10.0); MONOCYTES % (AUTO) 9.4 % (0.0-11.0); NEUTROPHILS % (AUTO) 78.9 % (38.5-71.5); PLATELET COUNT (AUTO) 90 K/uL (179-408); WHITE BLOOD COUNT (AUTO) 8.9 K/uL (3.8-11.8)
[2017-12-21 13:18] LABS: CARBON DIOXIDE 21 mmol/L (21-32); CHLORIDE 106 mmol/L (98-107); CREATININE 0.7 mg/dL (0.6-1.3); GLUCOSE 109 mg/dL (74-106); POTASSIUM 4.4 mmol/L (3.5-5.1); UREA NITROGEN, BLOOD 15 mg/dL (7-18)
[2017-12-21 13:23] LABS: ALANINE AMINOTRANSFERASE 52 U/L (14-59); ALKALINE PHOSPHATASE 155 U/L (50-136); ASPARTATE AMINOTRANSFERASE 57 U/L (15-37); BILIRUBIN,DIRECT 0.6 mg/dL (0.0-0.2); BILIRUBIN,TOTAL 1.6 mg/dL (0.2-1.0); TOTAL PROTEIN, SERUM 7.1 g/dL (6.4-8.2)
[2017-12-21] MEDS ORDERED: LACTULOSE 20 G/30 ML LIQUID UDC PO ONE (13:30)
[2017-12-21] MEDS ORDERED: LACTULOSE 20 G/30 ML LIQUID UDC ONE (13:33)
[2017-12-21] MEDS ORDERED: Z GUARD REMEDY PASTE 57 GM TUBE TOP PRN (14:15)
[2017-12-21] MEDS ORDERED: HYDROCODONE/APAP 5-325MG TABLET PO PRN (14:15)
[2017-12-21] MEDS ORDERED: ONDANSETRON 4 MG/2 ML VIAL IV PRN (14:15)
[2017-12-21] MEDS ORDERED: MAGNESIUM HYDROXIDE 30 ML LIQUID UDC PO PRN (14:15)
--- NOTE | 2017-12-21 15:00 | NUR ---
patient admitted from ER to room 208 in stable condition zambian speaking only. On tele V pacing. Veena FIGUEROA aware. admission orders noted and carried out. admission assessments to be completed. comfort measures provided. call light within reach will continue to monitor.
[2017-12-21 15:19] VITALS: BP 141/75
[2017-12-21] MEDS ORDERED: PNEUMOCOCCAL 23-VAL P-SAC VAC 0.5 ML VIAL IM ONE (16:15)
[2017-12-21] MEDS: LACTULOSE 20 G/30 ML LIQUID UDC PO SCH (16:17)
[2017-12-21] MEDS: PROPRANOLOL HCL 10 MG TABLET PO SCH (16:17)
[2017-12-21 16:50] LABS: *BILIRUBIN,URIN NEGATIVE (NEGATIVE); *BLOOD, URINE NEGATIVE (NEGATIVE); *CLARITY,URINE CLEAR (CLEAR); *COLOR,URINE DARK YELLOW (YELLOW); *KETONES,URINE NEGATIVE (NEGATIVE); *PROTEIN,URINE NEGATIVE (NEGATIVE); LEUKOCYTE ESTERASE ,URINE NEGATIVE (NEGATIVE); NITRITE, URINE NEGATIVE (NEGATIVE); PH,URINE 6.5 (5.0-8.0); UGLUCOSE NEGATIVE (NEGATIVE)
[2017-12-21] MEDS ORDERED: SORAFENIB TOSYLATE 200 MG PO SCH (17:00)
[2017-12-21] MEDS ORDERED: NEXAVAR 200 MG PO SCH (17:00)
[2017-12-21 19:27] VITALS: BP 120/61
--- NOTE | 2017-12-21 19:30 | NUR ---
Received patient in stable condition. No acute distress. Vital signs within range. Family at the bedside. Patient is alert, awake, oriented x2-3. Irish-speaking only. Pertinent assessment completed. Noted with left wrist 20G IV running with NS at 50cc/hr. No signs of infiltration noted. Patient is on strict I & O's, will monitor & document per MD order. Call light within reach. Will continue to monitor through shift.
[2017-12-21] MEDS: IV NS 1000 ML 1,000 ML IV PRN (20:34)
[2017-12-21] MEDS: DOCUSATE SODIUM 100 MG CAPSULE PO SCH (20:34)
[2017-12-21 23:30] VITALS: BP 105/58
[2017-12-22 03:34] VITALS: BP 125/65
[2017-12-22 07:22] LABS: ALANINE AMINOTRANSFERASE 54 U/L (14-59); ALKALINE PHOSPHATASE 129 U/L (50-136); ASPARTATE AMINOTRANSFERASE 51 U/L (15-37); BILIRUBIN,TOTAL 2.2 mg/dL (0.2-1.0); CARBON DIOXIDE 20 mmol/L (21-32); CHLORIDE 107 mmol/L (98-107); CHOLESTEROL 144 mg/dL (<200); CREATININE 0.6 mg/dL (0.6-1.3); GLUCOSE 89 mg/dL (74-106); HDL CHOLESTEROL 48 mg/dL (40-60); PHOSPHOROUS 2.8 mg/dL (2.5-4.9); POTASSIUM 4.2 mmol/L (3.5-5.1); TOTAL PROTEIN, SERUM 6.3 g/dL (6.4-8.2); TRIGLYCERIDES 45 MG/DL (30-150); UREA NITROGEN, BLOOD 13 mg/dL (7-18)
[2017-12-22 08:00] VITALS: BP 123/70
--- NOTE | 2017-12-22 08:00 | NUR ---
Awake, alert,oriented x 2, angolan speaking, with daughter at bedside. IVF infusing.
[2017-12-22] MEDS: PANTOPRAZOLE SODIUM 40 MG VIAL IV SCH (09:11)
[2017-12-22] MEDS: PROPRANOLOL HCL 10 MG TABLET PO SCH ×2 (09:12→18:31)
[2017-12-22] MEDS: FUROSEMIDE 20 MG TABLET PO SCH (09:13)
[2017-12-22] MEDS: SPIRONOLACTONE 25 MG TABLET PO SCH (09:13)
[2017-12-22] MEDS: LACTULOSE 20 G/30 ML LIQUID UDC PO SCH ×2 (09:13→18:29)
[2017-12-22 11:42] VITALS: BP 125/70
--- NOTE | 2017-12-22 12:00 | NUR ---
Eating fairly, assisted by daughter
[2017-12-22 16:02] VITALS: BP 140/77
[2017-12-22] MEDS: IV NS 1000 ML 1,000 ML IV PRN (16:12)
--- NOTE | 2017-12-22 18:57 | NUR ---
END OF SHIFT REPORT; PATIENT AOX2, VITAL SIGNS STABLE THROUGHOUT THE SHIFT. PATIENT STATED THAT SHE HAS HAD 4 BM TODAY. IVF TO LEFT FA NS RUNNING CONTINUESLY AT 50CC/HR. NO SIGNES OF INFILTRATION OR PAIN. PATIENT AMBULATED WITH ASSIST.
[2017-12-22 19:00] VITALS: BP 154/89
--- NOTE | 2017-12-22 19:30 | NUR ---
Received patient in stable condition. No acute distress noted. Vital signs within range. Patient currently in bathroom at start of shift with 1 BM, family at the bedside assisting her. Pertinent assessment completed. IV fluids running into Left forearm at 50cc/hr. No signs of infiltration at IV site. Per day shift nurse, Dr. Nunez to see patient this evening for oncology consult. Call light within reach of patient. will continue to monitor through shift.
[2017-12-22] MEDS: DOCUSATE SODIUM 100 MG CAPSULE PO SCH (20:17)
[2017-12-23 04:00] VITALS: BP 117/48
--- NOTE | 2017-12-23 06:44 | NUR ---
Patient remained stable through shift. Vital signs WNL. Daughter at the bedside through out the night. Slept intermittently through shift. x4 BMs during the night. All needs attended to promptly. Medications administered per MD order. Safety measures implemented. Call light within reach. Will endorse to oncoming shift.
[2017-12-23] MEDS: SPIRONOLACTONE 25 MG TABLET PO SCH (10:12)
[2017-12-23] MEDS: PANTOPRAZOLE SODIUM 40 MG VIAL IV SCH (10:12)
[2017-12-23] MEDS: PROPRANOLOL HCL 10 MG TABLET PO SCH ×3 (10:13→16:56)
[2017-12-23] MEDS: FUROSEMIDE 20 MG TABLET PO SCH (10:14)
[2017-12-23] MEDS: LACTULOSE 20 G/30 ML LIQUID UDC PO SCH ×2 (10:14→16:44)
[2017-12-23 11:33] VITALS: BP 139/64
--- NOTE | 2017-12-23 12:00 | NUR ---
Received report from outgoing nurse, patient in bed, IV fluids running, no distress noted at this time, bed in low position, side rails up x2, daughter at bedside.
[2017-12-23] MEDS: IV NS 1000 ML 1,000 ML IV PRN (13:05)
[2017-12-23 15:37] VITALS: BP 105/55
[2017-12-23] MEDS ORDERED: BEANO PO PRN (15:45)
--- NOTE | 2017-12-23 19:01 | NUR ---
PATIENT HAS BEEN COOPERATIVE WITH CARE, ALL NEEDS MET, NO DISTRESS NOTED AT THIS TIME, BED IN LOW POSITION, SIDE RAILS UP X2. DAUGHTER AT BEDSIDE.
[2017-12-23 19:22] VITALS: BP 124/79
--- NOTE | 2017-12-23 19:40 | NUR ---
PATIENT LYING ON BED,KOREAN SPEAKING,DAUGHTER AT THE BED SIDE.C/O STOMACH BLOATING. PRN HOME MEDICATION ADMINISTERED ORDERED. ALL NEEDS ATTENDED.WILL CONTINUE TO MONITOR.
[2017-12-23] MEDS: DOCUSATE SODIUM 100 MG CAPSULE PO SCH (21:10)
--- NOTE | 2017-12-23 21:49 | NUR ---
PAIN MEDICATION ADMINISTERED ON C/O ABDOMINAL PAIN
[2017-12-24 03:36] VITALS: BP 121/64
--- NOTE | 2017-12-24 05:58 | NUR ---
PATIENT INTERMITTENTLY SLEEPING, NO C/O PAIN OR DISCOMFORT . HAD LOOSE BM X 4 DURING THE SHIFT . IV FLUID INFUSING ORDERED. WILL CONTINUE TO MONITOR.
--- NOTE | 2017-12-24 07:30 | NUR ---
on bed, resting. denies discomfort. anxious to go home. made aware of pending ammonia level after 0900 today then will be seen by attending md. verbalized understanding
[2017-12-24] MEDS: FUROSEMIDE 20 MG TABLET PO SCH (08:42)
[2017-12-24] MEDS: SPIRONOLACTONE 25 MG TABLET PO SCH (08:42)
[2017-12-24] MEDS: PANTOPRAZOLE SODIUM 40 MG VIAL IV SCH (08:42)
[2017-12-24] MEDS: LACTULOSE 20 G/30 ML LIQUID UDC PO SCH ×2 (08:43→13:08)
[2017-12-24] MEDS: PROPRANOLOL HCL 10 MG TABLET PO SCH (08:43)
[2017-12-24] MEDS: IV NS 1000 ML 1,000 ML IV PRN (09:26)
--- NOTE | 2017-12-24 10:00 | NUR ---
daughter rosa in ,reinforced need gor lactulose for management of ammonia level and better mentation , patient agreed with daughter, will monitor
[2017-12-24 11:19] VITALS: BP 127/72
[2017-12-24] MEDS ORDERED: LACT10SO PO (11:25)
--- NOTE | 2017-12-24 12:30 | NUR ---
aware of discharge order, waiting for ride for pickling operator. glad of discharge today
--- NOTE | 2017-12-24 14:15 | NUR ---
discharged home as ordered, left in stable condition with daughter, rosa. aware of home instruction and follow up
[2017-12-25] MEDS ORDERED: PANTOPRAZOLE SODIUM 40 MG TABLET.DR PO SCH (07:00)
== END 2017-12-24 14:15 | disposition home or self-care (01) ==
LOC: ER 12:29 → TELE 14:05 → MED 12-22 12:07
PROVIDERS: ADMIT Registered Nurse; ATTEND Registered Nurse
DX: K71.10 Toxic liver disease with hepatic necrosis, without coma (principal); I50.33 Acute on chronic diastolic (congestive) heart failure; C22.0 Liver cell carcinoma; E86.0 Dehydration; D69.6 Thrombocytopenia, unspecified; D68.59 Other primary thrombophilia; E44.1 Mild protein-calorie malnutrition; T45.1X5A Adverse effect of antineoplastic and immunosuppressive drugs, initial encounter; I67.2 Cerebral atherosclerosis; G47.33 Obstructive sleep apnea (adult) (pediatric); Y92.019 Unspecified place in single-family (private) house as the place of occurrence of the external cause; Z95.0 Presence of cardiac pacemaker; Z87.11 Personal history of peptic ulcer disease; Z91.14 Patient's other noncompliance with medication regimen; Z68.23 Body mass index [BMI] 23.0-23.9, adult; Z79.51 Long term (current) use of inhaled steroids; I11.0 Hypertensive heart disease with heart failure; K74.60 Unspecified cirrhosis of liver
CPT/HCPCS: 36415; 70030-TC; 70450; 71045; 83735; 84100; 84443; 85025; 85610; 85730; 87086; 92610; 93005; 97110; 97530; A4663; C9113; G0378; J7030; J7040

== ENCOUNTER 2018-01-11 12:22 | Inpatient (IN) | payer OTHER, MEDICARE ==
[~2018-01-11] VITALS: Ht 154.9 cm; Wt 63.5 kg
[~2018-01-11 12:22] MED LIST changes: +FURO20TA4 PO; +LACT10SO PO; +ONDA8TAB12 PO; +PROP10TA10 PO; +RANI150T8 PO; +SORA200T2 PO; +SPIR25TA6 PO
[2018-01-11] MEDS ORDERED: LACTULOSE 20 G/30 ML LIQUID UDC PO ONE (13:00)
[2018-01-11 13:33] LABS: BASOPHILS % (AUTO) 0.3 % (0.0-2.0); EOSINOPHILS % (AUTO) 0.2 % (0.0-7.0); HEMATOCRIT 34.3 % (31.2-41.9); HEMOGLOBIN 11.6 g/dL (10.9-14.3); LYMPHOCYTES # (AUTO) 1.1 K/uL (20.0-40.0); LYMPHOCYTES % (AUTO) 12.1 % (20.5-51.5); MEAN CORPUSCULAR HEMOGLOBIN 29.5 uug (24.7-32.8); MEAN CORPUSCULAR HGB CONC 34 g/dL (32.3-35.6); MEAN CORPUSCULAR VOLUME 87.4 fL (75.5-95.3); MONOCYTES % (AUTO) 11.4 % (0.0-11.0); NEUTROPHILS # (AUTO) 6.8 K/uL (1.8-8.9); PLATELET COUNT (AUTO) 85 K/uL (179-408); RED BLOOD CELL COUNT(AUTO) 3.92 MIL/uL (3.63-4.92)
[2018-01-11] MEDS ORDERED: LACTULOSE 20 G/30 ML LIQUID UDC ONE ×2 (13:33→13:34)
[2018-01-11 13:38] LABS: ALANINE AMINOTRANSFERASE 199 U/L (14-59); ALKALINE PHOSPHATASE 309 U/L (50-136); ASPARTATE AMINOTRANSFERASE 194 U/L (15-37); BILIRUBIN,DIRECT 1.8 mg/dL (0.0-0.2); BILIRUBIN,TOTAL 3.3 mg/dL (0.2-1.0); CARBON DIOXIDE 23 mmol/L (21-32); CHLORIDE 102 mmol/L (98-107); CREATININE 0.9 mg/dL (0.6-1.3); GLUCOSE 138 mg/dL (74-106); POTASSIUM 4.3 mmol/L (3.5-5.1); TOTAL PROTEIN, SERUM 6.6 g/dL (6.4-8.2)
[2018-01-11 13:44] LABS: UREA NITROGEN, BLOOD 22 mg/dL (7-18)
[2018-01-11] MEDS ORDERED: HYDROCODONE/APAP 5-325MG TABLET PO PRN (14:45)
[2018-01-11] MEDS ORDERED: MAGNESIUM HYDROXIDE 30 ML LIQUID UDC PO PRN (14:45)
[2018-01-11] MEDS ORDERED: ONDANSETRON 4 MG/2 ML VIAL IV PRN (14:45)
[2018-01-11] MEDS ORDERED: MORPHINE SULFATE 2 MG/1 ML DISP.SYRIN IV PRN (14:45)
[2018-01-11] MEDS ORDERED: Z GUARD REMEDY PASTE 57 GM TUBE TOP PRN (14:45)
[2018-01-11] MEDS ORDERED: ACETAMINOPHEN 650 MG SUPP.RECT RC PRN (14:45)
--- NOTE | 2018-01-11 15:10 | NUR ---
PATIENT TRANSFERRED ONTO TELEMETRY FLOOR AT THIS TIME IN STABLE CONDITION, VITAL SIGNS STABLE. TELEMETRY SHOWS V-PACING WITH UNDERLYING SINUS RHYTHM AND UNDERLYING FIRST DEGREE AV BLOCK. BED REST AT THIS TIME. KISWA[place]ILI SPEAKING ONLY. DAUGHTER AT BEDSIDE TO TRANSLATE. BELONGINGS CHECKED, ID-BAND PLACED. WILL CONTINUE TO MONITOR. BED ALARM ON. WILL FOLLOW MD ORDERS. SAFETY MEASURES IMPLEMENTED.
[2018-01-11 15:20] VITALS: BP 124/72
[2018-01-11] MEDS ORDERED: FAMOTIDINE 20 MG TABLET PO SCH (17:00)
[2018-01-11] MEDS: FUROSEMIDE 20 MG TABLET PO SCH (18:06)
[2018-01-11] MEDS: LACTULOSE 20 G/30 ML LIQUID UDC PO SCH (18:06)
[2018-01-11 19:53] VITALS: BP 132/77
[2018-01-11] MEDS: PROPRANOLOL HCL 10 MG TABLET PO SCH (21:12)
[2018-01-12] VITALS: BP 131/74
[2018-01-12 04:00] VITALS: BP 140/75
--- NOTE | 2018-01-12 06:00 | NUR ---
HAD UNEVENTFUL NIGHT,MEDICATED FOR PAIN WITH GOOD RESULTS.
[2018-01-12 06:28] LABS: BASOPHILS % (AUTO) 0.1 % (0.0-2.0); EOSINOPHILS % (AUTO) 0.3 % (0.0-7.0); HEMATOCRIT 36.9 % (31.2-41.9); HEMOGLOBIN 12.3 g/dL (10.9-14.3); LYMPHOCYTES # (AUTO) 0.8 K/uL (20.0-40.0); LYMPHOCYTES % (AUTO) 7.6 % (20.5-51.5); MEAN CORPUSCULAR HEMOGLOBIN 29.2 uug (24.7-32.8); MEAN CORPUSCULAR HGB CONC 33 g/dL (32.3-35.6); MEAN CORPUSCULAR VOLUME 87.7 fL (75.5-95.3); MONOCYTES # (AUTO) 1.1 K/uL (2.0-10.0); NEUTROPHILS # (AUTO) 8.9 K/uL (1.8-8.9); PLATELET COUNT (AUTO) 91 K/uL (179-408); RED BLOOD CELL COUNT(AUTO) 4.21 MIL/uL (3.63-4.92); WHITE BLOOD COUNT (AUTO) 10.9 K/uL (3.8-11.8)
[2018-01-12 06:41] LABS: ALANINE AMINOTRANSFERASE 189 U/L (14-59); ALKALINE PHOSPHATASE 307 U/L (50-136); ASPARTATE AMINOTRANSFERASE 172 U/L (15-37); BILIRUBIN,DIRECT 1.9 mg/dL (0.0-0.2); BILIRUBIN,TOTAL 3.4 mg/dL (0.2-1.0); CARBON DIOXIDE 21 mmol/L (21-32); CHLORIDE 103 mmol/L (98-107); CREATININE 0.9 mg/dL (0.6-1.3); GLUCOSE 147 mg/dL (74-106); MAGNESIUM 2.2 mg/dL (1.8-2.4); PHOSPHOROUS 3.5 mg/dL (2.5-4.9); TOTAL PROTEIN, SERUM 6.6 g/dL (6.4-8.2); UREA NITROGEN, BLOOD 26 mg/dL (7-18)
[2018-01-12 06:54] LABS: THYROID STIMULATING HORMONE 3.224 mIU/mL (0.358-3.740)
[2018-01-12] MEDS: IV NS 1000 ML 1,000 ML IV PRN ×2 (07:18→20:58)
[2018-01-12 07:25] LABS: EOSINOPHILS % (MANUAL) 2 % (0-8); LYMPHOCYTES % (MANUAL) 9 % (20-40); MONOCYTES % (MANUAL) 8 % (2-10); NEUTROPHILS % (MANUAL) 81 % (42-75)
--- NOTE | 2018-01-12 07:25 | NUR ---
PATIENT RECEIVED RESTING IN BED THIS AM, ALERT AND RESPONSIVE, PATIENT DENIES ANY PAIN AT THIS TIME, CONTINUE TO MONITOR. NO DISTRESS NOTED OR REPORTED, FAMILY AT PATIENT SIDE
[2018-01-12 08:44] VITALS: BP 138/84
[2018-01-12] MEDS: FUROSEMIDE 20 MG TABLET PO SCH ×2 (08:47→17:36)
[2018-01-12] MEDS: SPIRONOLACTONE 25 MG TABLET PO SCH (08:47)
[2018-01-12] MEDS: LACTULOSE 20 G/30 ML LIQUID UDC PO SCH ×3 (08:47→17:36)
[2018-01-12] MEDS: PROPRANOLOL HCL 10 MG TABLET PO SCH ×2 (08:47→20:51)
[2018-01-12] MEDS: PANTOPRAZOLE SODIUM 40 MG VIAL IV SCH (08:47)
[2018-01-12 11:52] VITALS: BP 138/81
--- NOTE | 2018-01-12 12:16 | NUR ---
PATIENT REMAINS ALERT AND RESPONSIVE THIS AM, ALERT , ORIENTED TO PERSON, KNOWS SHE IS IN HOSPITAL AND THE YEAR, PATIENT WEAK UNABLE TO PARTICIPATE IN PHYSICAL THERAPY, THEY WILL CONTINUE TO REASSESS. PATIENT WITH FAMILY AT BEDSIDE QUESTIONS AND CONCERNS ADDRESSED.
--- NOTE | 2018-01-12 13:26 | NUR ---
FREQUENT PERICARE FOR LOOSE BOWEL MOVEMENTS FROM LACTULOSE, CONTINUE TO ASSIST WITH CARE, MAINTAIN OPTIMAL SKIN INTEGRITY. PATIENT ABLE TO FOLLOW COMMANDS TO ASSIST WITH REPOSITIONING DURING CARE, SKIN REMAINS INTACT.
--- NOTE | 2018-01-12 15:36 | NUR ---
patient provided with pericare prior to straight cath for urine, collected at this time. Addendum: 01/12/18 at 1558 by DOMENICA HOLLINGSWORTH RN STRAIGHT CATH OUTPUT 400ML
[2018-01-12 15:58] VITALS: BP 129/70
[2018-01-12 16:19] LABS: *BILIRUBIN,URIN 1+ (NEGATIVE); *CLARITY,URINE SLIGHTLY CLOUDY (CLEAR); *COLOR,URINE AMBER (YELLOW); *KETONES,URINE NEGATIVE (NEGATIVE); *PROTEIN,URINE NEGATIVE (NEGATIVE); LEUKOCYTE ESTERASE ,URINE NEGATIVE (NEGATIVE); NITRITE, URINE NEGATIVE (NEGATIVE); PH,URINE 5.5 (5.0-8.0); UGLUCOSE NEGATIVE (NEGATIVE)
[2018-01-12 16:46] LABS: *BLOOD, URINE TRACE (NEGATIVE)
[2018-01-12 16:47] LABS: BACTERIA,URINE MANY /HPF (NONE SEEN); MUCUS,URINE MANY /LPF (0-FEW); WBC,URINE 0-3 /HPF (0-3)
--- NOTE | 2018-01-12 16:56 | NUR ---
patient denies any pain, no pain reported today, continue to monitor patient sleeping intermittently, arousable to touch, responsive to name. family remains at bedside continue to monitor
[2018-01-12 19:30] VITALS: BP 130/72
[2018-01-13 03:15] VITALS: BP 123/66
--- NOTE | 2018-01-13 06:08 | NUR ---
PATIENT ASLEEP IN BED. FAMILY AT BEDSIDE. PATIENT SLEPT WELL THROUGHOUT THE NIGHT. NO RESP. DISTRESS NOTED. VSS. IVF INFUSING WELL. CALL LIGHT IN REACH. ALL NEEDS ATTENDED.
[2018-01-13] MEDS ORDERED: CEFTRIAXONE 1 G VIAL IM SCH (08:15)
[2018-01-13 08:21] LABS: BASOPHILS # (AUTO) 0.1 K/uL (0.0-8.0); BASOPHILS % (AUTO) 0.9 % (0.0-2.0); EOSINOPHILS % (AUTO) 0.4 % (0.0-7.0); HEMATOCRIT 34.7 % (31.2-41.9); HEMOGLOBIN 11.5 g/dL (10.9-14.3); LYMPHOCYTES # (AUTO) 0.9 K/uL (20.0-40.0); LYMPHOCYTES % (AUTO) 8.4 % (20.5-51.5); MEAN CORPUSCULAR HEMOGLOBIN 29.3 uug (24.7-32.8); MEAN CORPUSCULAR HGB CONC 33 g/dL (32.3-35.6); MEAN CORPUSCULAR VOLUME 88.2 fL (75.5-95.3); MONOCYTES # (AUTO) 0.9 K/uL (2.0-10.0); MONOCYTES % (AUTO) 8.1 % (0.0-11.0); NEUTROPHILS # (AUTO) 8.7 K/uL (1.8-8.9); NEUTROPHILS % (AUTO) 82.2 % (38.5-71.5); PLATELET COUNT (AUTO) 52 K/uL (179-408); RED BLOOD CELL COUNT(AUTO) 3.93 MIL/uL (3.63-4.92); WHITE BLOOD COUNT (AUTO) 10.6 K/uL (3.8-11.8)
[2018-01-13 08:29] LABS: CARBON DIOXIDE 23 mmol/L (21-32); CHLORIDE 107 mmol/L (98-107); CREATININE 0.8 mg/dL (0.6-1.3); GLUCOSE 142 mg/dL (74-106); POTASSIUM 3.9 mmol/L (3.5-5.1); UREA NITROGEN, BLOOD 28 mg/dL (7-18)
[2018-01-13] MEDS ORDERED: PANTOPRAZOLE SODIUM 40 MG TABLET.DR PO SCH (08:55)
[2018-01-13 09:01] VITALS: BP 122/69
[2018-01-13] MEDS: PANTOPRAZOLE SODIUM 40 MG VIAL IV SCH (09:02)
[2018-01-13] MEDS: LACTULOSE 20 G/30 ML LIQUID UDC PO SCH ×3 (09:02→17:20)
[2018-01-13] MEDS: SPIRONOLACTONE 25 MG TABLET PO SCH (09:03)
[2018-01-13] MEDS: FUROSEMIDE 20 MG TABLET PO SCH ×2 (09:03→17:20)
[2018-01-13] MEDS: PROPRANOLOL HCL 10 MG TABLET PO SCH ×2 (09:03→21:32)
[2018-01-13 09:31] LABS: LYMPHOCYTES % (MANUAL) 8 % (20-40)
[2018-01-13 09:32] LABS: EOSINOPHILS % (MANUAL) 1 % (0-8); MONOCYTES % (MANUAL) 9 % (2-10); NEUTROPHILS % (MANUAL) 82 % (42-75)
[2018-01-13] MEDS ORDERED: CEFTRIAXONE 1 G in IV DEXTROSE 5% 50 ML IV SCH (09:45)
[2018-01-13 11:10] VITALS: BP 113/60
[2018-01-13] MEDS: IV NS 1000 ML 1,000 ML IV PRN (12:14)
--- NOTE | 2018-01-13 12:43 | NUR ---
WOUND CARE CONSULT: PT PRESENTS WITH INTACT BUT FRAGILE SKIN. GENERALIZED EDEMA NOTED. ALL SKIN PROTECTION RECOMMENDATIONS DISCUSSED WITH NURSING STAFFR. WILL SEE PRN. CURRENT KARRIE SCORE IS 14.
[2018-01-13 15:08] VITALS: BP 103/56
--- NOTE | 2018-01-13 15:31 | NUR ---
PATIENT CONTINUES WITH GENERALIZED EDEMA, MORE EDEMA NOTED IN BILATERAL FEET, PATIENT MORE DISTENDED, REPORTS FEELING MORE BLOATED. PATIENT HAVING LESS BOWEL MOVEMENTS THAN YESTERDAY. PATIENT DOES HAVE POOR INTAKE BUT IMPROVED SINCE YESTERDAY, REPORTED TO Chary GOYAL.P./ ORDERS RECEIVED FOR KUB AT THIS TIME, SOFTWARE SUPPORT TECHNICIAN WILL SEE PATIENT
--- NOTE | 2018-01-13 16:25 | NUR ---
PATIENT SEEN BY MIKE LANE N.P. DISCONTINUE FLUIDS, ELEVATE EXTREMITIES.
--- NOTE | 2018-01-13 20:05 | NUR ---
Pt Dianna x3. Yi speaking. Daughter at bedside. Reviewed plan of care with pt. Cooperative with care. Pt denies pain and SOB at this time. Extremities elevated. Safety precautions implemented. Bed on low locked position, call light within reach. Will continue to monitor.
[2018-01-13 20:58] VITALS: BP 124/71
[2018-01-13] MEDS: PIPERACILLIN/TAZOBACTAM/D5W 3.375 G in PREMIXED 1 EACH IV SCH (21:32)
[2018-01-13] MEDS ORDERED: PIPERACILLIN/TAZOBACTAM/D5W 3.375 G in PREMIXED 1 EACH IV SCH (22:00)
[2018-01-14] MEDS: PIPERACILLIN/TAZOBACTAM/D5W 3.375 G in PREMIXED 1 EACH IV SCH ×3 (05:11→21:10)
[2018-01-14] MEDS: PANTOPRAZOLE SODIUM 40 MG TABLET.DR PO SCH (06:00)
[2018-01-14 06:14] LABS: BASOPHILS # (AUTO) 0.1 K/uL (0.0-8.0); BASOPHILS % (AUTO) 0.8 % (0.0-2.0); EOSINOPHILS # (AUTO) 0.1 K/uL (0.0-0.7); EOSINOPHILS % (AUTO) 0.8 % (0.0-7.0); HEMATOCRIT 33.5 % (31.2-41.9); HEMOGLOBIN 11.2 g/dL (10.9-14.3); LYMPHOCYTES # (AUTO) 1.2 K/uL (20.0-40.0); LYMPHOCYTES % (AUTO) 12.8 % (20.5-51.5); MEAN CORPUSCULAR HEMOGLOBIN 29.6 uug (24.7-32.8); MEAN CORPUSCULAR HGB CONC 34 g/dL (32.3-35.6); MEAN CORPUSCULAR VOLUME 88.4 fL (75.5-95.3); MONOCYTES # (AUTO) 0.8 K/uL (2.0-10.0); MONOCYTES % (AUTO) 8.8 % (0.0-11.0); NEUTROPHILS # (AUTO) 7.1 K/uL (1.8-8.9); NEUTROPHILS % (AUTO) 76.8 % (38.5-71.5); PLATELET COUNT (AUTO) 56 K/uL (179-408); RED BLOOD CELL COUNT(AUTO) 3.79 MIL/uL (3.63-4.92); WHITE BLOOD COUNT (AUTO) 9.2 K/uL (3.8-11.8)
[2018-01-14 06:17] VITALS: BP 118/67
[2018-01-14 06:33] LABS: CARBON DIOXIDE 23 mmol/L (21-32); CHLORIDE 107 mmol/L (98-107); CREATININE 0.8 mg/dL (0.6-1.3); GLUCOSE 126 mg/dL (74-106); POTASSIUM 3.8 mmol/L (3.5-5.1); UREA NITROGEN, BLOOD 26 mg/dL (7-18)
--- NOTE | 2018-01-14 06:45 | NUR ---
Pt slept well throughout the night. Arousable to sound and touch. Daughter at bedside. Meds given as ordered, pt tolerated well. Kept pt clean and dry during shift. PICC line intact with no signs of redness or swelling. Pt has no complaints of pain at this time. Pt shows no s/s of acute distress. Safety precautions and comfort measures maintained at all times. Call light within reach. Will endorse accordingly.
[2018-01-14] MEDS: FUROSEMIDE 20 MG TABLET PO SCH ×2 (08:01→16:42)
[2018-01-14] MEDS: LACTULOSE 20 G/30 ML LIQUID UDC PO SCH ×3 (08:01→16:42)
[2018-01-14] MEDS: PROPRANOLOL HCL 10 MG TABLET PO SCH ×2 (08:01→21:09)
[2018-01-14] MEDS: SPIRONOLACTONE 25 MG TABLET PO SCH (08:01)
[2018-01-14 11:19] VITALS: BP 121/65
[2018-01-14 16:22] VITALS: BP 120/69
--- NOTE | 2018-01-14 20:15 | NUR ---
Pt resting comfortably in bed. Arousable with sound and touch. AxO x3, cooperative. Daughter at bedside. Discussed and reviewed plan of care. Pt has no complaints of pain or SOB. PICC line in right upper extremity intact and patent. Safety precautions and comfort measures implemented. Call light within reach. Will continue to monitor and carry out all orders.
[2018-01-14 20:23] VITALS: BP 138/57
[2018-01-15 04:39] VITALS: BP 107/59
[2018-01-15] MEDS: PIPERACILLIN/TAZOBACTAM/D5W 3.375 G in PREMIXED 1 EACH IV SCH (05:20)
[2018-01-15] MEDS: PANTOPRAZOLE SODIUM 40 MG TABLET.DR PO SCH (06:01)
--- NOTE | 2018-01-15 06:51 | NUR ---
Pt slept well throughout the night. Family member at bedside. Easily arousable to sound and touch. Pt denies pain or SOB. Pt shows no s/s of acute distress at this time. Comfort measures maintained at all times, turning and reposition. Kept pt clean and dry during the night. Carried out all med orders, pt tolerated well. Safety precautions implemented, call light within reach. Will endorse continuity of care accordingly.
[2018-01-15 07:19] LABS: EOSINOPHILS # (AUTO) 0.2 K/uL (0.0-0.7); LYMPHOCYTES # (AUTO) 0.9 K/uL (20.0-40.0); LYMPHOCYTES % (AUTO) 10.6 % (20.5-51.5); MONOCYTES # (AUTO) 0.8 K/uL (2.0-10.0); MONOCYTES % (AUTO) 9.4 % (0.0-11.0); NEUTROPHILS # (AUTO) 6.5 K/uL (1.8-8.9); NEUTROPHILS % (AUTO) 77.5 % (38.5-71.5); WHITE BLOOD COUNT (AUTO) 8.4 K/uL (3.8-11.8)
[2018-01-15 07:21] LABS: BASOPHILS % (AUTO) 0.3 % (0.0-2.0); EOSINOPHILS % (AUTO) 2.2 % (0.0-7.0); HEMATOCRIT 34.3 % (31.2-41.9); HEMOGLOBIN 11.3 g/dL (10.9-14.3); MEAN CORPUSCULAR HEMOGLOBIN 28.9 uug (24.7-32.8); MEAN CORPUSCULAR HGB CONC 33 g/dL (32.3-35.6); MEAN CORPUSCULAR VOLUME 88.3 fL (75.5-95.3); RED BLOOD CELL COUNT(AUTO) 3.89 MIL/uL (3.63-4.92)
[2018-01-15 07:42] LABS: PLATELET COUNT (AUTO) 46 K/uL (179-408)
[2018-01-15] MEDS: FUROSEMIDE 20 MG TABLET PO SCH ×2 (08:03→16:35)
[2018-01-15] MEDS: LACTULOSE 20 G/30 ML LIQUID UDC PO SCH ×5 (08:03→20:21)
[2018-01-15] MEDS: PROPRANOLOL HCL 10 MG TABLET PO SCH ×2 (08:03→20:22)
[2018-01-15] MEDS: SPIRONOLACTONE 25 MG TABLET PO SCH (08:04)
[2018-01-15 08:16] LABS: CARBON DIOXIDE 21 mmol/L (21-32); CHLORIDE 107 mmol/L (98-107); CREATININE 0.7 mg/dL (0.6-1.3); GLUCOSE 110 mg/dL (74-106); POTASSIUM 3.8 mmol/L (3.5-5.1); UREA NITROGEN, BLOOD 26 mg/dL (7-18)
[2018-01-15 10:16] LABS: BAND % (MANUAL) 2 % (0-10); EOSINOPHILS % (MANUAL) 3 % (0-8); LYMPHOCYTES % (MANUAL) 11 % (20-40); MONOCYTES % (MANUAL) 8 % (2-10); NEUTROPHILS % (MANUAL) 76 % (42-75)
[2018-01-15 11:27] VITALS: BP 100/60
[2018-01-15] MEDS: ALBUTEROL SULFATE 2.5 MG/3 ML NEBU NEB PRN ×2 (12:08→19:18)
[2018-01-15 15:04] VITALS: BP 117/72
--- NOTE | 2018-01-15 19:45 | NUR ---
Received pt sitting up in bed. Awake, alert and oriented x3. Tajik speaking. Daughter at bedside. Discussed and reviewed plan of care and pain management with pt. Pt cooperative with care. Pt denies SOB and pain at this time. No s/s of acute distress noted. Antibiotic therapy noted. Comfort measures implemented. Call light within reach. Will continue to monitor.
[2018-01-15 20:00] VITALS: BP 114/61
[2018-01-15] MEDS: NITROFURANTOIN/NITROFURAN MAC 100 MG CAPSULE PO SCH (20:22)
[2018-01-16 04:00] VITALS: BP 129/66
[2018-01-16 06:00] LABS: BASOPHILS % (AUTO) 0.4 % (0.0-2.0); EOSINOPHILS # (AUTO) 0.2 K/uL (0.0-0.7); EOSINOPHILS % (AUTO) 1.7 % (0.0-7.0); HEMATOCRIT 35.3 % (31.2-41.9); HEMOGLOBIN 11.7 g/dL (10.9-14.3); LYMPHOCYTES % (AUTO) 10.9 % (20.5-51.5); MEAN CORPUSCULAR HEMOGLOBIN 29.6 uug (24.7-32.8); MEAN CORPUSCULAR HGB CONC 33 g/dL (32.3-35.6); MEAN CORPUSCULAR VOLUME 89.6 fL (75.5-95.3); MONOCYTES # (AUTO) 0.8 K/uL (2.0-10.0); MONOCYTES % (AUTO) 8.7 % (0.0-11.0); NEUTROPHILS # (AUTO) 7.1 K/uL (1.8-8.9); NEUTROPHILS % (AUTO) 78.3 % (38.5-71.5); RED BLOOD CELL COUNT(AUTO) 3.94 MIL/uL (3.63-4.92)
[2018-01-16 06:06] LABS: CARBON DIOXIDE 26 mmol/L (21-32); CHLORIDE 108 mmol/L (98-107); CREATININE 0.8 mg/dL (0.6-1.3); GLUCOSE 114 mg/dL (74-106); POTASSIUM 3.7 mmol/L (3.5-5.1); UREA NITROGEN, BLOOD 28 mg/dL (7-18)
[2018-01-16 06:08] LABS: PLATELET COUNT (AUTO) 49 K/uL (179-408)
[2018-01-16 06:22] LABS: BAND % (MANUAL) 1 % (0-10); EOSINOPHILS % (MANUAL) 1 % (0-8); LYMPHOCYTES % (MANUAL) 13 % (20-40); METAMYELOCYTES % 2 % (0-1); MYELOCYTES % 1 % (0-0); NEUTROPHILS % (MANUAL) 79 % (42-75)
[2018-01-16] MEDS: PANTOPRAZOLE SODIUM 40 MG TABLET.DR PO SCH (06:35)
--- NOTE | 2018-01-16 06:45 | NUR ---
Pt slept well throughout the night. Daughter at bedside. Pt easily arousable during initial rounds. Pt denies pain or SOB at this time. Pt shows no signs of acute distress. Critical lab value PLATELETS from 46 - 49. Lab value trending up. Pain controlled throughout shift. Kept pt dry and clean. Safety precautions maintained at all times. Bed on low locked position. Call light within reach. Will endorse accordingly.
[2018-01-16] MEDS: ALBUTEROL SULFATE 2.5 MG/3 ML NEBU NEB PRN ×3 (07:23→15:57)
--- NOTE | 2018-01-16 07:40 | NUR ---
Pt AxO x3. Lithuanian speaking. Daughter at bedside. Cooperative with care. Pt denies pain and SOB at this time. Extremities elevated. Safety precautions implemented. Bed on low locked position, call light within reach. Will continue to monitor.
[2018-01-16] MEDS: PROPRANOLOL HCL 10 MG TABLET PO SCH ×2 (08:06→21:46)
[2018-01-16] MEDS: NITROFURANTOIN/NITROFURAN MAC 100 MG CAPSULE PO SCH ×2 (08:06→21:44)
[2018-01-16] MEDS: SPIRONOLACTONE 25 MG TABLET PO SCH (08:06)
[2018-01-16] MEDS: FUROSEMIDE 20 MG TABLET PO SCH ×2 (08:06→16:02)
[2018-01-16] MEDS: LACTULOSE 20 G/30 ML LIQUID UDC PO SCH ×4 (08:15→21:44)
[2018-01-16 11:24] VITALS: BP 128/64
[2018-01-16 15:19] VITALS: BP 115/61
--- NOTE | 2018-01-16 15:24 | NUR ---
FREQUENT ANTHONY CARE FOR LOOSE BOWEL MOVEMENTS FROM LACTULOSE, CONTINUE TO ASSIST WITH CARE, MAINTAIN OPTIMAL SKIN INTEGRITY. PATIENT ABLE TO FOLLOW COMMANDS TO ASSIST WITH REPOSITIONING DURING CARE, SKIN REMAINS INTACT. DAUGHTER IS AT BED SIDE
--- NOTE | 2018-01-16 19:10 | NUR ---
RECEIVED PT AWAKE ON BED, AAOX3, MACEDONIAN SPEAKING, DENIES ANY DISCOMFORT AT THIS TIME. FAMILY AT BEDSIDE. PICC LINE ON MARCE, PATENT AND INTACT. SAFETY MEASURES INITIATED, CALL MARCELINO WITHIN REACH.
[2018-01-16 20:00] VITALS: BP 125/64
[2018-01-17 04:00] VITALS: BP 126/71
[2018-01-17] MEDS: PANTOPRAZOLE SODIUM 40 MG TABLET.DR PO SCH (06:24)
[2018-01-17 06:44] LABS: CARBON DIOXIDE 22 mmol/L (21-32); CHLORIDE 107 mmol/L (98-107); CREATININE 0.8 mg/dL (0.6-1.3); GLUCOSE 112 mg/dL (74-106); POTASSIUM 4.4 mmol/L (3.5-5.1); UREA NITROGEN, BLOOD 24 mg/dL (7-18)
--- NOTE | 2018-01-17 06:53 | NUR ---
PT RESTING COMFORTABLY ON BED, AAOX3, NO SIGNS OF DISCOMFORT AT THIS TIME. PICC LINE ON MARCE, PATENT AND INTACT. PERICARE AND SKIN CARE PROVIDED. FAMILY AT BEDSIDE. ALL NEEDS ATTENDED AND MET. SAFE ENVIRONMENT MAINTAINED AT ALL TIMES, CALL MARCELINO WITHIN REACH.
--- NOTE | 2018-01-17 08:00 | NUR ---
RESTING IN BED NO SOB OR PAIN ON ASPIRATION /FALL PRECAUTION BED ALARM ON AND CALL LIGHT IN REACH
[2018-01-17] MEDS: SPIRONOLACTONE 25 MG TABLET PO SCH (08:30)
[2018-01-17] MEDS: LACTULOSE 20 G/30 ML LIQUID UDC PO SCH ×3 (08:30→17:20)
[2018-01-17] MEDS: FUROSEMIDE 20 MG TABLET PO SCH ×2 (08:30→17:20)
[2018-01-17] MEDS: NITROFURANTOIN/NITROFURAN MAC 100 MG CAPSULE PO SCH (08:30)
[2018-01-17] MEDS: PROPRANOLOL HCL 10 MG TABLET PO SCH (08:32)
[2018-01-17 08:38] LABS: BASOPHILS # (AUTO) 0.1 K/uL (0.0-8.0); BASOPHILS % (AUTO) 0.8 % (0.0-2.0); EOSINOPHILS # (AUTO) 0.2 K/uL (0.0-0.7); EOSINOPHILS % (AUTO) 1.8 % (0.0-7.0); HEMATOCRIT 35.4 % (31.2-41.9); HEMOGLOBIN 11.8 g/dL (10.9-14.3); LYMPHOCYTES # (AUTO) 0.9 K/uL (20.0-40.0); LYMPHOCYTES % (AUTO) 8.3 % (20.5-51.5); MEAN CORPUSCULAR HEMOGLOBIN 29.9 uug (24.7-32.8); MEAN CORPUSCULAR HGB CONC 33 g/dL (32.3-35.6); MEAN CORPUSCULAR VOLUME 89.7 fL (75.5-95.3); MONOCYTES # (AUTO) 1.1 K/uL (2.0-10.0); MONOCYTES % (AUTO) 10.2 % (0.0-11.0); NEUTROPHILS # (AUTO) 8.3 K/uL (1.8-8.9); NEUTROPHILS % (AUTO) 78.9 % (38.5-71.5); RED BLOOD CELL COUNT(AUTO) 3.95 MIL/uL (3.63-4.92); WHITE BLOOD COUNT (AUTO) 10.6 K/uL (3.8-11.8)
[2018-01-17 08:48] LABS: PLATELET COUNT (AUTO) 44 K/uL (179-408)
[2018-01-17 09:46] LABS: BAND % (MANUAL) 1 % (0-10); EOSINOPHILS % (MANUAL) 1 % (0-8); LYMPHOCYTES % (MANUAL) 7 % (20-40); MONOCYTES % (MANUAL) 13 % (2-10); NEUTROPHILS % (MANUAL) 78 % (42-75)
[2018-01-17 11:28] VITALS: BP 149/74
[2018-01-17] MEDS ORDERED: LACT10SO7 PO (12:28)
[2018-01-17] MEDS ORDERED: NITR100C11 PO (12:28)
[2018-01-17] MEDS: ALBUTEROL SULFATE 2.5 MG/3 ML NEBU NEB PRN (14:31)
--- NOTE | 2018-01-17 15:00 | NUR ---
D/C INSTRUCTION REGARDING NEED TO F/U WITH OWN PMD CONTINUE HOME MEDUICINE ORDER /PRECRIPTION AND EDUCATION PK GAVE ,EXPLAINED TO MELANIE ,VERBALIZES UNDERSTAND AND SIGNS D/C SHEET PICC LINE INTACT WITH PATIENT FOR CHEMO THERAPY OUT PATIENT ALL BELONGING GAVE
[2018-01-17 15:26] VITALS: BP 133/83
--- NOTE | 2018-01-17 18:00 | NUR ---
D/C HOME WITH HER BELONGING CONDITION STABLE ACCOMPANIES WITH DAUGHTER ,D/C VIA AMBULANCE
== END 2018-01-17 18:00 | disposition home health service (06) | DRG 279 ==
LOC: ER 12:22 → TELE 14:54 → MED 01-12 14:55
PROVIDERS: ADMIT Nurse Practitioner Acute Care; ATTEND Nurse Practitioner Acute Care
DX: K72.00 Acute and subacute hepatic failure without coma (principal); N17.0 Acute kidney failure with tubular necrosis; R18.8 Other ascites; C22.0 Liver cell carcinoma; E44.1 Mild protein-calorie malnutrition; D69.59 Other secondary thrombocytopenia; E87.1 Hypo-osmolality and hyponatremia; E86.0 Dehydration; B95.2 Enterococcus as the cause of diseases classified elsewhere; K74.69 Other cirrhosis of liver; N39.0 Urinary tract infection, site not specified; K75.81 Nonalcoholic steatohepatitis (NASH); Z79.899 Other long term (current) drug therapy; Z68.26 Body mass index [BMI] 26.0-26.9, adult; Z95.0 Presence of cardiac pacemaker; Z79.51 Long term (current) use of inhaled steroids; K80.20 Calculus of gallbladder without cholecystitis without obstruction; Z87.11 Personal history of peptic ulcer disease; J45.909 Unspecified asthma, uncomplicated; I49.9 Cardiac arrhythmia, unspecified; G47.33 Obstructive sleep apnea (adult) (pediatric); K29.70 Gastritis, unspecified, without bleeding; I25.10 Atherosclerotic heart disease of native coronary artery without angina pectoris
CPT/HCPCS: 36415; 70450; 71045; 74018; 83735; 84100; 84443; 85025; 85730; 87040; 87077; 87086; 94640; 94664; 97110; 97112; 97116; 97530; A4663; C1758; C9113; G0378; J0696; J2270; J2405; J2543; J7030; J7060